=== PATIENT | female | born 1965 | race Caucasian/White ===

== ENCOUNTER 2016-11-05 17:03 | Emergency (ER) | payer OTHER ==
[~2016-11-05] VITALS: Ht 157.5 cm; Wt 89.3 kg
[2016-11-05 17:17] VITALS: BP 136/85
[2016-11-05] MEDS ORDERED: BUPIVACAINE/PF-EPI 0.25% 1:200K SQ ONE (17:30)
[2016-11-05] MEDS ORDERED: DIPH,PERTUSS(ACELL),TET VAC/PF 0.5 ML IM-VACC ONE ×2 (17:30→17:35)
[2016-11-05] MEDS ORDERED: LIDOCAINE 1%, 20ML SQ ONE (17:30)
[2016-11-05] MEDS ORDERED: BUPIVACAINE 0.25% ONE (17:35)
[2016-11-05] MEDS ORDERED: LIDOCAINE 1%, 20ML ONE (17:35)
[2016-11-05] MEDS ORDERED: BACITRACIN ZINC OINT 500U/GM, 0.9 GM ONE (18:27)
== END 2016-11-05 20:02 | disposition home or self-care (01) ==
LOC: ED 19:56
DX: S62.664A Nondisplaced fracture of distal phalanx of right ring finger, initial encounter for closed fracture (principal); S62.653A Nondisplaced fracture of middle phalanx of left middle finger, initial encounter for closed fracture; X58.XXXA Exposure to other specified factors, initial encounter; Y93.89 Activity, other specified; Y99.8 Other external cause status; Y92.89 Other specified places as the place of occurrence of the external cause
CPT/HCPCS: 11740; 90471; 90715